=== PATIENT | male | born 1950 | race Caucasian/White ===

== ENCOUNTER → 2020-08-30 06:56 | Outpatient (CLI) | payer MEDICARE, SELFPAY ==
[2020-08-23 13:51] VITALS: BMI 30.3
--- NOTE | 2020-08-30 06:57 | CT_ITS ---
INDICATION: abdominal pain EXAMINATION: CT ABDOMEN AND PELVIS WITH CONTRAST - CT Abdomen And Pelvis W/ Contrast Injection TECHNIQUE: Helically acquired images were obtained of the abdomen and pelvis following IV contrast. A radiation dose optimization technique was used for this scan. IV Contrast dosage and agent: 100 mL ISOVUE 300 Oral contrast: None. COMPARISON: None. FINDINGS: LOWER CHEST: There is peribronchial consolidation in the basilar segments of the lower lobe of the right lung. There are no pleural effusions. The heart size is normal. There is no pericardial effusion. There is calcific ASCVD of the thoracic aorta and coronary arteries. There are benign calcified granulomas in the lower lobe of the left lung. LIVER: Homogeneous. No focal mass. GALLBLADDER AND BILIARY TREE: No calcified gallstones. No gallbladder distension or wall edema. No intra- or extrahepatic biliary ductal dilation. PANCREAS: No focal cystic or solid mass. SPLEEN: Normal size without focal cystic or solid mass. There are benign calcified granulomas in the spleen. ADRENAL GLANDS: No nodules. KIDNEYS AND URETERS: Normal renal size and position. There is a 4 mm stone in an upper pole calyx of the right kidney. There is a 2 mm stone in the interpolar calyx of the right kidney. There is a 2 mm stone in a lower pole calyx of the right kidney. There is a 7 mm stone in an interpolar calyx of the left kidney. No hydronephrosis. PERITONEUM: No ascites or free air. No other fluid collection. BOWEL: The appendix is not demonstrated. There is scattered colonic diverticuli without evidence of acute inflammation. There is stool throughout the colon. LYMPH NODES: No enlarged mesenteric or retroperitoneal lymph nodes. VESSELS: Aorta is non-dilated. There is calcific ASCVD of the abdominal aorta. URINARY BLADDER: Unremarkable. REPRODUCTIVE ORGANS: No pelvic masses. The prostate gland is normal in size. The seminal vesicles are unremarkable. ABDOMINAL WALL: There is a 17 mm in diameter umbilical hernia containing normal fat. There is a 3.1 cm in diameter right inguinal hernia containing normal fat. BONES: No lytic or blastic abnormality. There is multilevel degenerative disc disease of the lower thoracic and lumbar spine with associated dextroscoliosis. 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 CT/Abdomen/Pelvis WITH Contrast IMPRESSION: 1. Bilateral nephrolithiasis without obstruction. 2. Colonic diverticulosis without diverticulitis. 3. Mild constipation. 4. Umbilical and right inguinal hernias containing normal fat. 5. Peribronchial consolidation in the lower lobe the right lung, could be acute or chronic. 6. Other findings as noted. Electronically Signed: Dami Bales MD at 11:31 EDT Tel , Service support ,
[2020-08-30 07:05] LABS: CREATININE FINGERSTICK 1.1 mg/dL (0.70-1.30); EGFR FINGERSTICK > 60.0000 mL/min (>60)
== END ==
PROVIDERS: PCP Family Medicine; Referring Provider Surgery; Visit Provider Surgery
DX: R10.9 Unspecified abdominal pain (principal)
CPT/HCPCS: 74177; Q9967

== ENCOUNTER 2020-09-21 08:47 | Day surgery (SDC) | payer MEDICARE, SELFPAY ==
[2020-08-23 13:51] VITALS: BMI 30.3
[2020-09-21] VITALS (7 sets, daily range): BP systolic 96–150; BP diastolic 78–90; PULSE 57–77; RESP 16–18; TEMP 36.1–36.4; O2SAT 95–99
--- NOTE | 2020-09-21 11:03 | PCM.HP.BLA ---
History and Physical Date of Admission: 09/21/20 Intake Visit Reasons: Hernia Chief Complaint: hernia [employer] Required: No Accompanied by: Is patient in pain?: No Allergies No Known Allergies Allergy (Unverified 08/23/20 13:52) Medications aspirin 81 mg chewable tablet 81 mg PO DAILY 08/23/20 [History Confirmed 08/23/20] atorvastatin 10 mg tablet 10 mg PO DAILY 08/23/20 [History Confirmed 08/23/20] doxazosin 4 mg tablet 4 mg PO DAILY 08/23/20 [History Confirmed 08/23/20] hydrochlorothiazide 12.5 mg tablet 12.5 mg PO DAILY 08/23/20 [History Confirmed 08/23/20] lisinopril 20 mg tablet 20 mg PO DAILY 08/23/20 [History Confirmed 08/23/20] metoprolol succinate 100 mg tablet,extended release 24 hr 100 mg PO DAILY 08/23/20 [History Confirmed 08/23/20] omeprazole 40 mg capsule,delayed release 40 mg PO DAILY 08/23/20 [History Confirmed 08/23/20] [facility] Medical History (Updated 08/23/20 @ 16:[address] Cruz Law MD) Dental infection (Acute) Personal history of colonic polyps (Acute) Weight loss (Acute) Nonspecific abdominal pain (Acute) Reducible right inguinal hernia (Acute) Heart murmur (Acute) History of hypercholesterolemia (Acute) Right inguinal hernia (Acute) Hypertension (Chronic) Surgical History (Updated 08/23/20 @ 13:50 by Erika Choe) History of appendectomy (Acute) History of tonsillectomy (Acute) History of vasectomy (Acute) Family History (Updated 08/23/20 @ 13:51 by Erika Choe) Father Hypertension CVA (cerebral vascular accident) Cancer prostate Social History (Updated 08/23/20 @ 16:[address] Cruz Law MD) Smoking Status: Never smoker alcohol intake: current alcohol intake frequency: a few times a month substance use type: does not use HPI HPI HPI: JUN MATAMOROS, is a 69 M who presents to the office today for surgical consultation regarding a suspected right inguinal hernia. The patient is referred by Dr. Dwaine Rivera and a written copy my surgical consult recommendations will be returned to him. At this since a fall 2019 has had known bulging of the right groin. Currently its become increasingly sizable and more symptomatic. When he is bending and twisting it causes him a burning discomfort. He denies any history of trauma. He has not had any exposure to COVID-19. The patient reports that he had a colonoscopy a year and a half ago or so. He states that he is received a recall letter to return. He states however that the colonoscopy was not remarkable. After the patient's departure we were able to get records of a [facility] colonoscopy April 09, 2019. That procedure was performed by Dr. Asad Huff. A few diverticula were identified. The ileocecal junction was achieved. At the ileocecal junction there was a very small 4 mm polyp. That was removed with cold forceps. Then an additional area 6 said to be 840 cm from the anus there was an additional for an additional 5 mm polyp also removed with cold forceps. The final pathology suggests multiple glistening soft tissue structures measuring up to 5 mm in diameter. The specimens were felt to be consistent with tubular adenoma. The patient denies any bright red blood per rectum or melena. Denies abdominal pain. He is quite nonspecific but there is clearly evidence of weight loss. He attributes this to dietary change. The only previous surgeries had was a remote appendectomy. He has hypertension. He denies myocardial infarction or stroke or diabetes. He used to chew tobacco but that ceased. Alcohol infrequent. HPI HPI HPI: JUN MATAMOROS, is a 69 M who presents to the office today for ROS General General: No weight change, appetite, fatigue, colon cancer, breast cancer or weakness HEENT HEENT: No difficulty swallowing, eye injury, eye surgery, swollen glands or hoarseness Endo Endocrine: No thyroid disease, diabetes mellitus, thyroid cancer, Hair loss, heat intolerance or cold intolerance Skin Skin: No rash or changing moles Breast Breast: No left breast lump, right breast lump, nipple discharge, breast pain, abnormal mammogram, abnormal US or breast enlargement Musc Musculoskeletal: No back problems, arthritis, rheumatoid arthritis, gout or joint pain Cardio Cardiovascular: Yes murmur and high blood pressure; no pacemaker, heart disease, atrial fibrillation, heart attack, heart stent, palpitations, shortness of breat with exertion or chest pain Psych Psychiatric: No depression, anxiety or hearing voices Resp Respiratory: No shortness of breath, No sleep apnea, No cough, No COPD, No asthma, No emphysema, No wheezing Gastro Gastrointestinal: No abdominal pain, No nausea or vomiting, No diarrhea, No constipation, No blood in stool, No acid reflux, No hemorrhoids, No ulcers, No gallbladder problem, No black,tarry stools [place] Hematologic: Yes blood thinners, No blood disorders, No bleeding, No anemia, No blood clots Neuro Neurologic: No system reviewed and no additional complaints, except as docu, No as per HPI, No abnormal walking, No abnormal hearing, No abnormal movements, No abnormal speech, No behavioral changes, No burning sensations, No confusion, No seizure-like activity, No unsteadiness, No dizziness, No localized weakness, No frequent falls, No headache(s), No lack of coordination, No loss of vision, No memory loss, Yes numbness, No other visual disturbances, No radiating pain, No restless legs, No sensory deficit, No fainting, Yes tingling, No tremor(s), No weakness, No other Exam Const General: cooperative, healthy appearing, comfortable, no acute distress Nutritional Appearance: overweight Orientation: alert, awake [facility] Head: normal to inspection Eyes General: appearance normal, both eyes and all related structures Chest Breast Palpation: No nipple discharge Resp Effort & Inspection: normal respiratory effort Auscultation: clear to auscultation bilaterally Cardio Rate: regular rate Rhythm: regular rhythm Heart Sounds: murmur GI Palpation: soft, no hepatosplenomegaly Other: Possible mass left upper quadrant. Initially felt firm. Then possibly some mobility. Possible loop of colon. Nontender. Abdominal wall is lax. Very soft. Findings suggest overlapping skin consistent with recent weight loss. Not pulsatile or expansile. Normal bowel sounds Other: Left testicle is absent. Left groin solid. Lax skin right groin area with suggestion of indirect inguinal hernia on the right reducible. Atrophic right testicle. Musc Cervical Spine: normal cervical lordosis Skin Other: Lack scan of the abdomen, very little muscular resistance Neuro General: alert Extrem General: no calf tenderness Psych Affect: normal affect Assessment & Plan Problems 1. Reducible right inguinal hernia K40.90 2. Nonspecific abdominal pain R10.9 3. Weight loss R63.4 4. Personal history of colonic polyps Z86.010 5. Dental infection K04.7 Plan 69-year-old gentleman who was referred for a right inguinal hernia. On clinical exam it appears to be indirect and is reducible. Pertinent findings include what appears to be significant weight loss. Its difficult to decipher whether this is secondary to intentional efforts or other. On clinical exam thought I felt some firmness in the left upper quadrant with some mild tenderness. Not clear as to whether this is simply mobile bowel. After review became evident that April 09 he had a colonoscopy where 3 small tubular adenomas were removed. He does have a recall in place from Dr. Asad Huff to perform a repeat exam. Dental infection requiring current oral antibiotics and possibly root canal surgery. This will definitively delay right inguinal hernia surgery. Because of the weight loss and the possible palpable abnormality left upper quadrant and a history of colonic polyps I recommend a CT scan of the abdomen pelvics. If that is not remarkable then the patient can simply follow-up with Dr. Asad Huff at the appropriate timing for his follow-up colonoscopy. The CT scan will also help better delineate the patient's right groin problem. I have proposed for him a laparoscopic right inguinal herniorrhaphy with mesh and I described the technique, benefit, risk, alternatives. As noted however we will need to await clearance and complete resolution of his dental infection. We will not be able to schedule for repair at this time. He has had an opportunity to ask and have questions answered. I very much appreciate the kind opportunity of assisting with his surgical care. I will update him on the results of his CT scan. Copy: Dr. Dwaine Law M.D., F.A.C.S. The patient has elected for me to pursue his colonoscopy because of this personal history of colonoscopy and polypectomy that was performed April 09, 2019. He presents today essentially the open access. He is aware of the technique, benefit, risk, alternatives. We will proceed as noted. Cruz Law M.D., F.A.C.S.
--- NOTE | 2020-09-21 11:27 | OP.CCLET_ITS ---
09/21/2020 Dwaine Rivera [address] [place] [address] Re : Colonoscopy procedure for Jose Milton Dear Dr. Rivera This procedure was performed on Monday, September 21, 2020. My impressions and recommendations are as follows: Impressions : - Preparation of the colon was unsatisfactory. - Preparation of the colon was inadequate. - The procedure was aborted. - Hemorrhoids found on perianal exam. - Stool in the rectum. - No specimens collected. Recommendations : - Discharge patient to home. - Resume previous diet. - Continue present medications. - Repeat colonoscopy in 1 day for surveillance. My findings are described in the full procedure note, which is enclosed. If I can be of further assistance, please feel free to contact me at Doctor phone number(s): Work: . Sincerely, Cruz Law MD 09/21/2020 11:27:17 AM This report has been signed electronically.
--- NOTE | 2020-09-21 11:27 | OP.COLON_ITS ---
Patient Name: Jsoe Milton Procedure Date: 09/21/2020 11:01 AM Date of : 1950 Age: 69 Procedure: Colonoscopy Indications: High risk colon cancer surveillance: Personal history of colonic polyps Providers: Cruz Law MD Referring MD: Dwaine Rivera Medicines: See the Anesthesia note for documentation of the administered medications Patient Profile: Last Colonoscopy: March 2019. Complications: No immediate complications. Procedure: Pre-Anesthesia Assessment: - Prior to the procedure, a History and Physical was performed, and patient medications and allergies were reviewed. The patient's tolerance of previous anesthesia was also reviewed. The risks and benefits of the procedure and the sedation options and risks were discussed with the patient. All questions were answered, and informed consent was obtained. Prior Anticoagulants: The patient has taken no previous anticoagulant or antiplatelet agents. ASA Grade Assessment: II - A patient with mild systemic disease. After reviewing the risks and benefits, the patient was deemed in satisfactory condition to undergo the procedure. After I obtained informed consent, the scope was passed under direct vision. Throughout the procedure, the patient's blood pressure, pulse, and oxygen saturations were monitored continuously. The colonoscope was introduced through the anus with the intention of advancing to the cecum. The scope was advanced to the rectum before the procedure was aborted. Medications were given. The quality of the bowel preparation was inadequate and unsatisfactory. The colonoscopy was aborted. Scope In: 11:12:28 AM Scope Out: 11:13:24 AM Total Procedure Duration Time 0 hours 0 minutes 56 seconds Findings: Hemorrhoids were found on perianal exam. A large amount of stool was found in the rectum, precluding visualization. Impression: - Preparation of the colon was unsatisfactory. - Preparation of the colon was inadequate. - The procedure was aborted. - Hemorrhoids found on perianal exam. - Stool in the rectum. - No specimens collected. Recommendation: - Discharge patient to home. - Resume previous diet. - Continue present medications. - Repeat colonoscopy in 1 day for surveillance. Diagnosis Code(s): --- Professional --- Z86.010, Personal history of colonic polyps K64.9, Unspecified hemorrhoids Z53.8, Procedure and treatment not carried out for other reasons Cruz Law MD 09/21/2020 11:27:17 AM This report has been signed electronically. Number of Addenda: 0 Note Initiated On: 09/21/2020 11:01 AM
== END 2020-09-21 12:45 ==
LOC: EN 08:47 → AC 09:13
PROVIDERS: PCP Family Medicine; Referring Provider Family Medicine; Visit Provider Surgery
PROC: 0DJD8ZZ Inspection of Lower Intestinal Tract, Via Natural or Artificial Opening Endoscopic (ICD-10-PCS; CPT 45378; principal; 2020-09-21 09:55)
DX: Z12.11 Encounter for screening for malignant neoplasm of colon (principal); Z53.8 Procedure and treatment not carried out for other reasons; K40.90 Unilateral inguinal hernia, without obstruction or gangrene, not specified as recurrent; R63.4 Abnormal weight loss; K64.9 Unspecified hemorrhoids; I10 Essential (primary) hypertension; Z87.891 Personal history of nicotine dependence; K21.9 Gastro-esophageal reflux disease without esophagitis; E78.00 Pure hypercholesterolemia, unspecified; Z79.82 Long term (current) use of aspirin; Z79.899 Other long term (current) drug therapy; Z87.19 Personal history of other diseases of the digestive system
CPT/HCPCS: 45330; J7120; J2405

== ENCOUNTER 2020-09-30 05:31 | Day surgery (SDC) | payer MEDICARE, SELFPAY ==
[2020-08-23 13:51] VITALS: BMI 30.3
--- NOTE | 2020-09-30 | COLBX_PTH ---
PATIENT: JUN MATAMOROS LOC: EN U#:[id number] AGE/SX: 69/M ROOM: RE09/30/[address]: Dr. Cruz Law MD : 1950 BED: DIS: 09/30/2020 SPEC #: [id number] RECD: 09/30/20 07:44 STATUS: AYESHA DONNA #: [id number] MELINDA: 09/30/20 00:[address]: Cruz Law DEPT: SURGICAL PATHOLOGY RECD BY: Gil Talbert ENTERED: 09/30/20 08:44 SP TYPE: COLON BX OTHR DR: Dr. Dwaine Rivera MD Tissues: Transitional epithelium, NOS Procedures: Surgery Specimen Level IV HEADER OPERATION: Colonoscopy (MAC) PRE-OP DIAGNOSIS: Hernia TISSUE SUBMITTED: Biopsy of proximal transverse colon polyp MICROSCOPIC DIAGNOSIS Proximal transverse colon polyp, biopsy: Tubular adenoma. AM:vasyl 10/01/2020 MICROSCOPIC DESCRIPTION Slides are reviewed. GROSS DESCRIPTION Received in fixative is one container labeled with the patient's name and designated biopsy of proximal transverse colon polyp. The specimen consists of one irregular fragment of light fernandez soft tissue that measures 0.3 x 0.3 x 0.2 cm. The specimen is totally submitted in one cassette. / SJ:vasyl 09/30/20 TC:5 CPT: 72069
[2020-09-30 05:53] VITALS: BP 105/56; PULSE 58; RESP 16; TEMP 36.8; O2SAT 96; BMI 28.4
--- NOTE | 2020-09-30 05:53 | HP.PCM_ITS ---
History and Physical Date of Admission: 09/30/20 History and Physical Date of Admission: 09/21/20 Intake Visit Reasons: Hernia Chief Complaint: hernia Manufacturing Test Technician Required: No Accompanied by: Is patient in pain?: No Allergies No Known Allergies Allergy (Unverified 08/23/20 13:52) Medications aspirin 81 mg chewable tablet 81 mg PO DAILY 08/23/20 [History Confirmed 08/23/20] atorvastatin 10 mg tablet 10 mg PO DAILY 08/23/20 [History Confirmed 08/23/20] doxazosin 4 mg tablet 4 mg PO DAILY 08/23/20 [History Confirmed 08/23/20] hydrochlorothiazide 12.5 mg tablet 12.5 mg PO DAILY 08/23/20 [History Confirmed 08/23/20] lisinopril 20 mg tablet 20 mg PO DAILY 08/23/20 [History Confirmed 08/23/20] metoprolol succinate 100 mg tablet,extended release 24 hr 100 mg PO DAILY 08/23/20 [History Confirmed 08/23/20] omeprazole 40 mg capsule,delayed release 40 mg PO DAILY 08/23/20 [History Confirmed 08/23/20] PFSH Medical History? (Updated 08/23/20 @ 16:[address] Cruz Law MD) Dental infection (Acute) Personal history of colonic polyps (Acute) Weight loss (Acute) Nonspecific abdominal pain (Acute) Reducible right inguinal hernia (Acute) Heart murmur (Acute) History of hypercholesterolemia (Acute) Right inguinal hernia (Acute) Hypertension (Chronic) Surgical History? (Updated 08/23/20 @ 13:50 by Erika Choe) History of appendectomy (Acute) History of tonsillectomy (Acute) History of vasectomy (Acute) Family History? (Updated 08/23/20 @ 13:51 by Erika Choe) Father Hypertension CVA (cerebral vascular accident) Cancer ?? ? prostate Social History? (Updated 08/23/20 @ 16:[address] Cruz Law MD) Smoking Status:? Never smoker alcohol intake:? current alcohol intake frequency: a few times a month substance use type:? does not use HPI HPI HPI: JUN MATAMOROS, is a 69 M who presents to the office today for surgical consultation regarding a suspected right inguinal hernia.? The patient is referred by Dr. Dwaine Rivera and a written copy my surgical consult recommendations will be returned to him.? At this since a fall 2020 has had known bulging of the right groin.? Currently its become increasingly sizable and more symptomatic.? When he is bending and twisting it causes him a burning discomfort.? He denies any history of trauma.? He has not had any exposure to COVID-19. The patient reports that he had a colonoscopy a year and a half ago or so.? He states that he is received a recall letter to return.? He states however that the colonoscopy was not remarkable. After the patient's departure we were able to get records of a [facility] colonoscopy April 09, 2019.? That procedure was performed by Dr. Asad Huff.? A few diverticula were identified.? The ileocecal junction was achieved.? At the ileocecal junction there was a very small 4 mm polyp.? That was removed with cold forceps.? Then an additional area 6 said to be 840 cm from the anus there was an additional for an additional 5 mm polyp also removed with cold forceps.? The final pathology suggests multiple glistening soft tissue structures measuring up to 5 mm in diameter.? The specimens were felt to be consistent with tubular adenoma. The patient denies any bright red blood per rectum or melena.? Denies abdominal pain. He is quite nonspecific but there is clearly evidence of weight loss.? He attributes this to dietary change. The only previous surgeries had was a remote appendectomy.? He has hypertension.? He denies myocardial infarction or stroke or diabetes. He used to chew tobacco but that ceased.? Alcohol infrequent. HPI HPI HPI: JUN MATAMOROS, is a 69 M who presents to the office today for ROS General General: No weight change, appetite, fatigue, colon cancer, breast cancer or weakness HEENT HEENT: No difficulty swallowing, eye injury, eye surgery, swollen glands or hoarseness Endo Endocrine: No thyroid disease, diabetes mellitus, thyroid cancer, Hair loss, heat intolerance or cold intolerance Skin Skin: No rash or changing moles Breast Breast: No left breast lump, right breast lump, nipple discharge, breast pain, abnormal mammogram, abnormal US or breast enlargement Musc Musculoskeletal: No back problems, arthritis, rheumatoid arthritis, gout or joint pain Cardio Cardiovascular: Yes murmur and high blood pressure; no pacemaker, heart disease, atrial fibrillation, heart attack, heart stent, palpitations, shortness of breat with exertion or chest pain Psych Psychiatric: No depression, anxiety or hearing voices Resp Respiratory: No shortness of breath, No sleep apnea, No cough, No COPD, No asthma, No emphysema, No wheezing Gastro Gastrointestinal: No abdominal pain, No nausea or vomiting, No diarrhea, No constipation, No blood in stool, No acid reflux, No hemorrhoids, No ulcers, No gallbladder problem, No black,tarry stools Carlitos Hematologic: Yes blood thinners, No blood disorders, No bleeding, No anemia, No blood clots Neuro Neurologic: No system reviewed and no additional complaints, except as docu, No as per HPI, No abnormal walking, No abnormal hearing, No abnormal movements, No abnormal speech, No behavioral changes, No burning sensations, No confusion, No seizure-like activity, No unsteadiness, No dizziness, No localized weakness, No frequent falls, No headache(s), No lack of coordination, No loss of vision, No memory loss, Yes numbness, No other visual disturbances, No radiating pain, No restless legs, No sensory deficit, No fainting, Yes tingling, No tremor(s), No weakness, No other Exam Const General: cooperative, healthy appearing, comfortable, no acute distress Nutritional Appearance: overweight Orientation: alert, awake [facility] Head: normal to inspection Eyes General: appearance normal, both eyes and all related structures Chest Breast Palpation: No nipple discharge Resp Effort & Inspection: normal respiratory effort Auscultation: clear to auscultation bilaterally Cardio Rate: regular rate Rhythm: regular rhythm Heart Sounds: murmur GI Palpation: soft, no hepatosplenomegaly Other: Possible mass left upper quadrant.? Initially felt firm.? Then possibly some mobility.? Possible loop of colon.? Nontender. Abdominal wall is lax.? Very soft.? Findings suggest overlapping skin consistent with recent weight loss.? Not pulsatile or expansile.? Normal bowel sounds Other: Left testicle is absent.? Left groin solid.? Lax skin right groin area with suggestion of indirect inguinal hernia on the right reducible.? Atrophic right testicle. Musc Cervical Spine: normal cervical lordosis Skin Other: Lack scan of the abdomen, very little muscular resistance Neuro General: alert Extrem General: no calf tenderness Psych Affect: normal affect Assessment & Plan Problems 1. Reducible right inguinal hernia? K40.90 2. Nonspecific abdominal pain? R10.9 3. Weight loss? R63.4 4. Personal history of colonic polyps? Z86.010 5. Dental infection? K04.7 Plan 69-year-old gentleman who was referred for a right inguinal hernia.? On clinical exam it appears to be indirect and is reducible. Pertinent findings include what appears to be significant weight loss.? Its difficult to decipher whether this is secondary to intentional efforts or other.? On clinical exam thought I felt some firmness in the left upper quadrant with some mild tenderness.? Not clear as to whether this is simply mobile bowel. After review became evident that April 09 he had a colonoscopy where 3 small tubular adenomas were removed.? He does have a recall in place from Dr. Asad Huff to perform a repeat exam. Dental infection requiring current oral antibiotics and possibly root canal surgery.? This will definitively delay right inguinal hernia surgery. Because of the weight loss and the possible palpable abnormality left upper qu adrant and a history of colonic polyps I recommend a CT scan of the abdomen pelvics.? If that is not remarkable then the patient can simply follow-up with Dr. Asad Huff at the appropriate timing for his follow-up colonoscopy. The CT scan will also help better delineate the patient's right groin problem.? I have proposed for him a laparoscopic right inguinal herniorrhaphy with mesh and I described the technique, benefit, risk, alternatives.? As noted however we will need to await clearance and complete resolution of his dental infection.? We will not be able to schedule for repair at this time. He has had an opportunity to ask and have questions answered.? I very much appreciate the kind opportunity of assisting with his surgical care.? I will update him on the results of his CT scan. Copy: Dr. Dwaine Law M.D., F.A.C.S. The patient has elected for me to pursue his colonoscopy because of this personal history of colonoscopy and polypectomy that was performed April 09, 2019.? He presents today essentially the open access.? He is aware of the technique, benefit, risk, alternatives.? We will proceed as noted. Cruz Law M.D., F.A.C.S. Recent attempt on September 21, 2020 was made to pursue a colonoscopy. Unfortunate the bowel prep was completely inadequate at that time. The procedure was aborted and patient has been placed through a repeat bowel prep. He has had a personal history of colon polyps and some unexplained weight loss. Also plan to anticipate proceeding with a laparoscopic right inguinal hernia repair. He has a small umbilical hernia noted on CT exam as well as his right inguinal hernia. CT was performed on August 30, 2020. Cruz Law M.D., F.A.C.S.
[2020-09-30] MEDS: Lactated Ringers 1,000 ML 100 ML IV (06:09)
[2020-09-30 06:54] VITALS: BP 105/56; BP 106/60; PULSE 72; RESP 16; TEMP 36.4; O2SAT 97
--- NOTE | 2020-09-30 06:55 | OP.COLON_ITS ---
Patient Name: Jose Milton Procedure Date: 09/30/2020 6:18 AM Date of : 1950 Age: 69 Procedure: Colonoscopy Indications: High risk colon cancer surveillance: Personal history of colonic polyps Providers: Cruz Law MD Referring MD: Dwaine Rivera Medicines: See the Anesthesia note for documentation of the administered medications Patient Profile: Last Colonoscopy: March 2019. Complications: No immediate complications. Procedure: Pre-Anesthesia Assessment: - Prior to the procedure, a History and Physical was performed, and patient medications and allergies were reviewed. The patient's tolerance of previous anesthesia was also reviewed. The risks and benefits of the procedure and the sedation options and risks were discussed with the patient. All questions were answered, and informed consent was obtained. Prior Anticoagulants: The patient has taken no previous anticoagulant or antiplatelet agents. ASA Grade Assessment: II - A patient with mild systemic disease. After reviewing the risks and benefits, the patient was deemed in satisfactory condition to undergo the procedure. After I obtained informed consent, the scope was passed under direct vision. Throughout the procedure, the patient's blood pressure, pulse, and oxygen saturations were monitored continuously. The pediatric colonoscope was introduced through the anus and advanced to the cecum, identified by appendiceal orifice and ileocecal valve. The colonoscopy was performed without difficulty. The patient tolerated the procedure well. The quality of the bowel preparation was good. The ileocecal valve and the appendiceal orifice were photographed. Scope In: 6:33:19 AM Scope Withdrawal Time 0 hours 8 minutes 30 seconds Scope Out: 6:50:59 AM Total Procedure Duration Time 0 hours 17 minutes 40 seconds Findings: Hemorrhoids were found on perianal exam. The digital rectal exam findings include enlarged prostate. A 4 mm polyp was found in the proximal transverse colon. The polyp was sessile. The polyp was removed with a cold biopsy forceps. Resection and retrieval were complete. A few diverticula were found in the sigmoid colon. The exam was otherwise without abnormality. Impression: - Hemorrhoids found on perianal exam. - Enlarged prostate found on digital rectal exam. - One 4 mm polyp in the proximal transverse colon, removed with a cold biopsy forceps. Resected and retrieved. - Diverticulosis in the sigmoid colon. - The examination was otherwise normal. Recommendation: - Discharge patient to home. - Resume previous diet. - Continue present medications. - Repeat colonoscopy in 5 years for surveillance. - Telephone my office for pathology results in 1 week. Procedure Code(s): --- Professional --- 16054, Colonoscopy, flexible; with biopsy, single or multiple Diagnosis Code(s): --- Professional --- Z86.010, Personal history of colonic polyps K64.9, Unspecified hemorrhoids D12.3, Benign neoplasm of transverse colon (hepatic flexure or splenic flexure) K57.30, Diverticulosis of large intestine without perforation or abscess without bleeding N40.0, Benign prostatic hyperplasia without lower urinary tract symptoms CPT copyright 2017 [employer]. All rights reserved. The codes documented in this report are preliminary and upon remote computer terminal operator review may be revised to meet current compliance requirements. Cruz Law MD 09/30/2020 6:55:14 AM This report has been signed electronically. Number of Addenda: 0 Note Initiated On: 09/30/2020 6:18 AM
--- NOTE | 2020-09-30 06:55 | OP.CCLET_ITS ---
09/30/2020 Dwaine Rivera [address] [place] [address] Re : Colonoscopy procedure for Jose Milton Dear Dr. Rivera This procedure was performed on September. My impressions and recommendations are as follows: Impressions : - Hemorrhoids found on perianal exam. - Enlarged prostate found on digital rectal exam. - One 4 mm polyp in the proximal transverse colon, removed with a cold biopsy forceps. Resected and retrieved. - Diverticulosis in the sigmoid colon. - The examination was otherwise normal. Recommendations : - Discharge patient to home. - Resume previous diet. - Continue present medications. - Repeat colonoscopy in 5 years for surveillance. - Telephone my office for pathology results in 1 week. My findings are described in the full procedure note, which is enclosed. If I can be of further assistance, please feel free to contact me at Doctor phone number(s): Work: . Sincerely, Cruz Law MD 09/30/2020 6:55:14 AM This report has been signed electronically.
[2020-09-30 07:00] VITALS: BP 105/56; BP 106/77; PULSE 72; RESP 16; O2SAT 95
[2020-09-30 07:05] VITALS: BP 105/56; BP 94/64; PULSE 69; RESP 16; O2SAT 95
[2020-09-30 07:10] VITALS: BP 105/56; BP 114/68; PULSE 68; RESP 16; TEMP 36.8; O2SAT 94
[2020-09-30 07:15] VITALS: BP 105/56
== END 2020-09-30 07:50 ==
LOC: EN 05:32 → AC 05:32
PROVIDERS: PCP Family Medicine; Referring Provider Family Medicine; Visit Provider Surgery
PROC: 0DJD8ZZ Inspection of Lower Intestinal Tract, Via Natural or Artificial Opening Endoscopic (ICD-10-PCS; CPT 45378; principal; 2020-09-30 06:25)
DX: Z12.11 Encounter for screening for malignant neoplasm of colon (principal); D12.3 Benign neoplasm of transverse colon; K64.9 Unspecified hemorrhoids; Z86.010 Personal history of colon polyps; K57.30 Diverticulosis of large intestine without perforation or abscess without bleeding; K04.7 Periapical abscess without sinus; K40.90 Unilateral inguinal hernia, without obstruction or gangrene, not specified as recurrent; K42.9 Umbilical hernia without obstruction or gangrene; N40.0 Benign prostatic hyperplasia without lower urinary tract symptoms; I10 Essential (primary) hypertension; Z79.82 Long term (current) use of aspirin; Z79.899 Other long term (current) drug therapy
CPT/HCPCS: 45380; 88305; J7120; J2405

== ENCOUNTER 2020-10-05 11:07 | Day surgery (SDC) | payer MEDICARE, SELFPAY ==
[2020-08-23 13:51] VITALS: BMI 30.3
--- NOTE | 2020-09-30 06:03 | EKG12_ITS ---
Test Reason : PREOP Blood Pressure : / mmHG Vent. Rate : 060 BPM Atrial Rate : 060 BPM P-R Int : 156 ms QRS Dur : 078 ms QT Int : 434 ms P-R-T Axes : 033 035 024 degrees QTc Int : 434 ms Normal sinus rhythm Normal ECG Confirmed by SRINIVASA NAGEL, LAI ([id number]), editorial cartoonist ALCIRA CAMACHO ([id number]) on 10/06/2020 9:17:59 AM Referred By: Cruz Law Confirmed By:LAI BERNABE MD
[2020-09-30 06:17] LABS: Hematocrit 45.4 % (40-54); Hemoglobin 15.3 g/dL (13.0-16.5); Mean Corp Hgb Conc 33.7 g/dL (32-36); Mean Corpuscular Hgb 30.8 pg (27.0-32.0); Mean Corpuscular Volume 91.3 fL (80-94); Mean Platelet Vol. 9.3 fl (6.2-12.0); Platelet Count 131 K/mm3 (150-450); RBC Distribution Width CV 12.4 % (11.6-14.6); Red Blood Count 4.97 M/mm3 (4.6-6.2); White Blood Count 5.8 K/mm3 (4.4-11.0)
[2020-09-30 06:30] LABS: Anion Gap 4 (5-15); BUN 11 mg/dL (7-18); BUN/Creat Ratio 12.4 RATIO (10-20); Calcium,Total 9.1 mg/dL (8.5-10.1); Chloride 105 mmol/L (98-107); Creatinine, Serum 0.89 mg/dL (0.70-1.30); EST Glomerular Filtration Rate 89 mL/min (>60); Est Glom Filt Rate - Afr Amer 108 mL/min (>60); Glucose 98 mg/dL (74-106); Potassium 3.9 mmol/L (3.5-5.1); Sodium Level 141 mmol/L (136-145)
[2020-10-05 11:42] VITALS: BP 134/71; PULSE 55; RESP 16; TEMP 36.4; O2SAT 97; BMI 29.0
[2020-10-05] MEDS: Lactated Ringers 1,000 ML 100 ML IV (12:01)
--- NOTE | 2020-10-05 12:30 | PCM.HP.BLA ---
History and Physical Date of Admission: 10/05/20 istory and Physical Date of Admission: 09/30/20 History and Physical Date of Admission: 09/21/20 Intake Visit Reasons: Hernia Chief Complaint: hernia Animal Assisted Therapist Required: No Accompanied by: Is patient in pain?: No Allergies No Known Allergies Allergy (Unverified 08/23/20 13:52) Medications aspirin 81 mg chewable tablet 81 mg PO DAILY 08/23/20 [History Confirmed 08/23/20] atorvastatin 10 mg tablet 10 mg PO DAILY 08/23/20 [History Confirmed 08/23/20] doxazosin 4 mg tablet 4 mg PO DAILY 08/23/20 [History Confirmed 08/23/20] hydrochlorothiazide 12.5 mg tablet 12.5 mg PO DAILY 08/23/20 [History Confirmed 08/23/20] lisinopril 20 mg tablet 20 mg PO DAILY 08/23/20 [History Confirmed 08/23/20] metoprolol succinate 100 mg tablet,extended release 24 hr 100 mg PO DAILY 08/23/20 [History Confirmed 08/23/20] omeprazole 40 mg capsule,delayed release 40 mg PO DAILY 08/23/20 [History Confirmed 08/23/20] [facility] Medical History (Updated 08/23/20 @ 16:[address] Cruz Law MD) Dental infection (Acute) Personal history of colonic polyps (Acute) Weight loss (Acute) Nonspecific abdominal pain (Acute) Reducible right inguinal hernia (Acute) Heart murmur (Acute) History of hypercholesterolemia (Acute) Right inguinal hernia (Acute) Hypertension (Chronic) Surgical History (Updated 08/23/20 @ 13:50 by Erika Choe) History of appendectomy (Acute) History of tonsillectomy (Acute) History of vasectomy (Acute) Family History (Updated 08/23/20 @ 13:51 by Erika Choe) Father Hypertension CVA (cerebral vascular accident) Cancer prostate Social History (Updated 08/23/20 @ 16:[address] Cruz Lwa MD) Smoking Status: Never smoker alcohol intake: current alcohol intake frequency: a few times a month substance use type: does not use HPI HPI HPI: JUN MATAMOROS, is a 69 M who presents to the office today for surgical consultation regarding a suspected right inguinal hernia. The patient is referred by Dr. Dwaine Rivera and a written copy my surgical consult recommendations will be returned to him. At this since a fall 2020 has had known bulging of the right groin. Currently its become increasingly sizable and more symptomatic. When he is bending and twisting it causes him a burning discomfort. He denies any history of trauma. He has not had any exposure to COVID-19. The patient reports that he had a colonoscopy a year and a half ago or so. He states that he is received a recall letter to return. He states however that the colonoscopy was not remarkable. After the patient's departure we were able to get records of a [facility] colonoscopy April 09, 2019. That procedure was performed by Dr. Asad Huff. A few diverticula were identified. The ileocecal junction was achieved. At the ileocecal junction there was a very small 4 mm polyp. That was removed with cold forceps. Then an additional area 6 said to be 840 cm from the anus there was an additional for an additional 5 mm polyp also removed with cold forceps. The final pathology suggests multiple glistening soft tissue structures measuring up to 5 mm in diameter. The specimens were felt to be consistent with tubular adenoma. The patient denies any bright red blood per rectum or melena. Denies abdominal pain. He is quite nonspecific but there is clearly evidence of weight loss. He attributes this to dietary change. The only previous surgeries had was a remote appendectomy. He has hypertension. He denies myocardial infarction or stroke or diabetes. He used to chew tobacco but that ceased. Alcohol infrequent. HPI HPI HPI: JUN MATAMOROS, is a 69 M who presents to the office today for ROS General General: No weight change, appetite, fatigue, colon cancer, breast cancer or weakness HEENT HEENT: No difficulty swallowing, eye injury, eye surgery, swollen glands or hoarseness Endo Endocrine: No thyroid disease, diabetes mellitus, thyroid cancer, Hair loss, heat intolerance or cold intolerance Skin Skin: No rash or changing moles Breast Breast: No left breast lump, right breast lump, nipple discharge, breast pain, abnormal mammogram, abnormal US or breast enlargement Musc Musculoskeletal: No back problems, arthritis, rheumatoid arthritis, gout or joint pain Cardio Cardiovascular: Yes murmur and high blood pressure; no pacemaker, heart disease, atrial fibrillation, heart attack, heart stent, palpitations, shortness of breat with exertion or chest pain Psych Psychiatric: No depression, anxiety or hearing voices Resp Respiratory: No shortness of breath, No sleep apnea, No cough, No COPD, No asthma, No emphysema, No wheezing Gastro Gastrointestinal: No abdominal pain, No nausea or vomiting, No diarrhea, No constipation, No blood in stool, No acid reflux, No hemorrhoids, No ulcers, No gallbladder problem, No black,tarry stools Carlitos Hematologic: Yes blood thinners, No blood disorders, No bleeding, No anemia, No blood clots Neuro Neurologic: No system reviewed and no additional complaints, except as docu, No as per HPI, No abnormal walking, No abnormal hearing, No abnormal movements, No abnormal speech, No behavioral changes, No burning sensations, No confusion, No seizure-like activity, No unsteadiness, No dizziness, No localized weakness, No frequent falls, No headache(s), No lack of coordination, No loss of vision, No memory loss, Yes numbness, No other visual disturbances, No radiating pain, No restless legs, No sensory deficit, No fainting, Yes tingling, No tremor(s), No weakness, No other Exam Const General: cooperative, healthy appearing, comfortable, no acute distress Nutritional Appearance: overweight Orientation: alert, awake [facility] Head: normal to inspection Eyes General: appearance normal, both eyes and all related structures Chest Breast Palpation: No nipple discharge Resp Effort & Inspection: normal respiratory effort Auscultation: clear to auscultation bilaterally Cardio Rate: regular rate Rhythm: regular rhythm Heart Sounds: murmur GI Palpation: soft, no hepatosplenomegaly Other: Possible mass left upper quadrant. Initially felt firm. Then possibly some mobility. Possible loop of colon. Nontender. Abdominal wall is lax. Very soft. Findings suggest overlapping skin consistent with recent weight loss. Not pulsatile or expansile. Normal bowel sounds Other: Left testicle is absent. Left groin solid. Lax skin right groin area with suggestion of indirect inguinal hernia on the right reducible. Atrophic right testicle. Musc Cervical Spine: normal cervical lordosis Skin Other: Lack scan of the abdomen, very little muscular resistance Neuro General: alert Extrem General: no calf tenderness Psych Affect: normal affect Assessment & Plan Problems 1. Reducible right inguinal hernia K40.90 2. Nonspecific abdominal pain R10.9 3. Weight loss R63.4 4. Personal history of colonic polyps Z86.010 5. Dental infection K04.7 Plan 69-year-old gentleman who was referred for a right inguinal hernia. On clinical exam it appears to be indirect and is reducible. Pertinent findings include what appears to be significant weight loss. Its difficult to decipher whether this is secondary to intentional efforts or other. On clinical exam thought I felt some firmness in the left upper quadrant with some mild tenderness. Not clear as to whether this is simply mobile bowel. After review became evident that April 09 he had a colonoscopy where 3 small tubular adenomas were removed. He does have a recall in place from Dr. Asad Huff to perform a repeat exam. Dental infection requiring current oral antibiotics and possibly root canal surgery. This will definitively delay right inguinal hernia surgery. Because of the weight loss and the possible palpable abnormality left upper quadrant and a history of colonic polyps I recommend a CT scan of the abdomen pelvics. If that is not remarkable then the patient can simply follow-up with Dr. Asad Huff at the appropriate timing for his follow-up colonoscopy. The CT scan will also help better delineate the patient's right groin problem. I have proposed for him a laparoscopic right inguinal herniorrhaphy with mesh and I described the technique, benefit, risk, alternatives. As noted however we will need to await clearance and complete resolution of his dental infection. We will not be able to schedule for repair at this time. He has had an opportunity to ask and have questions answered. I very much appreciate the kind opportunity of assisting with his surgical care. I will update him on the results of his CT scan. The patient had a colonoscopy. That showed a small transverse colon polyp. Demonstrated some hemorrhoids. We will now proceed with a laparoscopic right inguinal herniorrhaphy. He is aware of the technique, benefit, risk, alternatives. It is anticipated that mesh will be utilized. He presents and we will proceed as noted. Copy: Dr. Dwaine Law M.D., F.A.C.S. I have re-examined the patient. There are no clinical changes since date of exam.
--- NOTE | 2020-10-05 12:32 | PCM.DC ---
Discharge Instructions Diet Discharge Diet: Light diet - advance as tolerated (if you have questions about your diet instructions, please talk to you doctor.) Activity Discharge Activity: May Not Drive (for 3-5 days or while taking narcotic pain medicine.) May shower in (days): 1 Lifting Restrictions: 10 pounds Dressing / Incision Call your doctor if your incision/area has: Continuous Slow Oozing, Sudden Increased Bleeding, Increased Pain/ Swelling, Increased Redness and Foul Smelling Discharge Call your doctor if you observe: Fever of 101 or Higher Suture Line Care: Avoid Pulling/Pushing and Avoid Pinching/Bending Additional Dressing/Incision Instructions:: Change or remove dressing in 4 days. Leave steri-strips in place for 1 week. Follow Up Care Please Follow Up With: Cruz Law MD When: Call [phone] to make an appointment to be seen in about 10 days. Test Results: Test results from this visit will be discussed in further detail at your follow-up appointment, if applicable. Discharge Plan Admission Attending Provider: Cruz Law Primary Care Provider: Dwaine Rivera Discharge Orders/Prescriptions Prescriptions: New hydrocodone-acetaminophen 5-325 mg Tablet 1 - 2 tab PO Q4H PRN PRN (Reason: Pain Score 1-10/10) 2 Days Qty: 5 RF: 0 Continued omeprazole 40 mg capsule,delayed release(DR/EC) 40 mg PO DAILY RF: 0 hydrochlorothiazide 12.5 mg tablet 12.5 mg PO DAILY RF: 0 atorvastatin 10 mg tablet 10 mg PO DAILY RF: 0 metoprolol succinate 100 mg tablet extended release 24 hr 100 mg PO DAILY RF: 0 doxazosin 4 mg tablet 4 mg PO DAILY RF: 0 lisinopril 20 mg tablet 20 mg PO DAILY RF: 0 aspirin 81 mg tablet,chewable 81 mg PO DAILY RF: 0 Other Ambulatory Orders: Basic Metabolic Profile (BMP) (Routine) Timeframe: 20200930 Facility: [facility] - Location: Laboratory Ordered By: Dr. Cruz Law CBC-Complete Blood Cnt No Diff (Routine) Timeframe: 20200930 Facility: [facility] - Location: Laboratory Ordered By: Dr. Cruz Law
[2020-10-05] MEDS: Cefazolin 2 GM in 0.9% Normal Saline 100 ML IV (12:49)
--- NOTE | 2020-10-05 13:10 | HERN_PTH ---
PATIENT: JUN MATAMOROS LOC: [facility] – [place] U#:[id number] AGE/SX: 69/M ROOM: RE10/05/[address]: Dr. Cruz Law MD : [id number] BED: DIS: 10/05/2020 SPEC #: [id number] RECD: 10/05/20 15:03 STATUS: AYESHA DONNA #: [id number] MELINDA: 10/05/20 13:[address]: Cruz Law DEPT: SURGICAL PATHOLOGY RECD BY: Vivi Way ENTERED: 10/06/20 11:35 SP TYPE: Hernia OTHR DR: Dr. Dwaine Rivera MD Tissues: HERNIA Procedures: Surgery Specimen Level II HEADER OPERATION: Laparoscopic inguinal hernia repair with mesh PRE-OP DIAGNOSIS: Reducible right inguinal hernia; abdominal pain TISSUE SUBMITTED: Hernia sac and contents MICROSCOPIC DIAGNOSIS Hernia sac and contents: A piece of fibroadipose and fibroconnective tissue, consistent with hernia sac. SJ:vasyl 10/07/2020 MICROSCOPIC DESCRIPTION Slides are reviewed. GROSS DESCRIPTION Received in fixative is one container labeled with the patient's name and designated hernia sac and contents. The specimen consists of a piece of adipose tissue measuring 4 x 2 x 1.5 cm. Mill [employer] Supervisor sections are submitted in one cassette. / MARYLU:vasyl 10/06/20 TC:5 [facility]: [id number]
--- NOTE | 2020-10-05 14:08 | OP.PCM_ITS ---
Problems Associated Problem List Diagnoses (1) Reducible right inguinal hernia: (2) Umbilical hernia without obstruction or gangrene: Report of Operation Date of Procedure: 10/05/20 Pre-Operative Diagnosis: Umbilical hernia and right inguinal hernia both reducible Post-Operative Diagnosis: Umbilical hernia and direct and indirect right inguinal hernias all reducible Surgery/Procedure Performed:: Laparoscopic right inguinal herniorrhaphy with Bard 3D max meshRef [id number], Lot [id number], expiry date 01/22/2025 Umbilical herniorrhaphy with 6.4 cm Ventralex mesh: ref [id number], Lot number [id number], expiry date 03/24/2022, Description of Surgical Findings:: Timeout and informed consent was obtained. 69-year-old gent was taken to the operating placed on the table underwent general endotracheal intubation anesthesia. Ancef 2 g were given intravenously preoperatively. The abdomen sterilely prepped and draped. 0.5% Marcaine was used as a local anesthetic. Skin sites were preanesthetized. A vertical infraumbilical incision was created sharp dissection carried down through the subcutaneous tissue a umbilical hernia was encountered the sac and contents were transected using electrocautery great care was taken to avoid any type of bowel involvement. Holding sutures of 0 Vicryl was placed. A 10 mm trocar inserted. The abdomen was insufflated with CO2 to a pressure of 10 mmHg pressure. Under direct visualization 5 mm ports were placed on the right and left lower quadrant. A ileal inguinal nerve block was performed on the right using laparoscopic visualization. Then the peritoneum superior and lateral to the internal ring was incised and carried medially. There was peritoneal scarring related to a remote appendectomy incision on the right lower quadrant. Upon dissecting the peritoneum free it was apparent that the patient had both a indirect and a direct right inguinal hernia. The direct indirect and femoral area completely dissected free. A Bard 3D max large left mesh was given and I simply inverted it to use it as a right. I placed it into shape and it nicely fit the area of interest. I secured it laterally superior and medially with secure strap. Excellent coverage of the direct indirect and femoral area was achieved. The peritoneum was then reapproximated to itself with secure strap and I used a couple hemolock clips to repair a couple defects. Complete obliteration to the mesh was achieved. The abdomen was allowed to deflate through an antiviral valve. A 6.4 cm Ventralex mesh was placed at the umbilicus. The tails were secured in place with interrupted 0 Nurolon. The fascia was approximated with the same and a couple sutures were used to secure the midportion of the mesh. Then the abdomen was reinsufflated inspection was performed with a 5 mm scope and trocar. Mesh was in good position. I carefully placed the greater omentum overlying the small bowel. The abdomen was again deflated through an antiviral valve. Skin e dges were approximated with interrupted 4 Monocryl subdermal stitches. Steri- Strips Telfa OpSite dressings applied. Sponge and instrument and needle counts were reported to the surgeon to be correct. Specimen includes umbilical hernia sac and contents. Drains none. Blood loss minimal. A total of 30 cc of 0.5% Marcaine utilized. The patient was taken to the recovery area in satisfactory condition without apparent complication Cruz Law M.D., F.A.C.S. Type of Anesthesia: General and Local Anesthesiologist: Bill Del Castillo
[2020-10-05] MEDS: Bupivacaine Mpf 0.5% 30 ML VIAL (14:09)
[2020-10-05] MEDS: Bupivacaine 0.5% PF 10 ML VIAL (14:13)
[2020-10-05 14:22] VITALS: BP 127/69; BP 134/71; PULSE 57; RESP 18; TEMP 35.9; O2SAT 94
[2020-10-05 14:30] VITALS: BP 130/69; BP 134/71; PULSE 53; RESP 18; O2SAT 96
[2020-10-05 14:47] VITALS: BP 134/71; BP 140/7; PULSE 53; RESP 18; TEMP 36.1; O2SAT 93
[2020-10-05 17:04] VITALS: BP 133/74; BP 134/71; PULSE 58; RESP 16; TEMP 36.2; O2SAT 95
== END 2020-10-05 17:19 ==
LOC: SDC 11:10 → AC 11:11
PROVIDERS: PCP Family Medicine; Referring Provider Surgery; Visit Provider Surgery
PROC: (CPT 49650; principal; 2020-10-05 12:50)
DX: K40.90 Unilateral inguinal hernia, without obstruction or gangrene, not specified as recurrent (principal); K42.9 Umbilical hernia without obstruction or gangrene; I10 Essential (primary) hypertension; E78.00 Pure hypercholesterolemia, unspecified; K21.9 Gastro-esophageal reflux disease without esophagitis; F17.220 Nicotine dependence, chewing tobacco, uncomplicated; Z79.899 Other long term (current) drug therapy; Z79.82 Long term (current) use of aspirin; Z87.19 Personal history of other diseases of the digestive system; K04.7 Periapical abscess without sinus
CPT/HCPCS: 00840; 49650; 49652; 80048; 85027; 88302; 93005; C1781; J7120; J2405